=== PATIENT | male | born 1960 | race Caucasian/White ===

== ENCOUNTER → 2021-01-13 | Outpatient (CLI) | payer MEDICARE, OTHER ==
[~2021-01-13] MED LIST: AUGMENTIN 875-1 EACH PO; BUSPIRONE HCL15 MG PO; DICLOFENAC GEL TP; LATANOPROST 0.7.5 ML OP; MELOXICAM15 MG PO; MIRTAZAPINE15 MG PO; OMEPRAZOLE40 MG PO; PROVENTIL HFA6.7 GM INH; SULFASALAZINE500 MG PO; TAMSULOSIN HCL0.4 MG PO; TIZANIDINE HCL4 MG PO; TRAMADOL HCL50 MG PO; ZITHROMAX250 MG PO
== END ==
LOC: EXRD 12-19 11:30
DX: M81.0 Age-related osteoporosis without current pathological fracture (principal)
CPT/HCPCS: 77080

== ENCOUNTER → 2021-01-14 | Outpatient (CLI) | payer MEDICARE, OTHER | LOC: CT 09:28 | DX: N52.9 Male erectile dysfunction, unspecified (principal); R31.9 Hematuria, unspecified; N28.1 Cyst of kidney, acquired | CPT/HCPCS: 36415; 82565; Q9963; Q9967 ==

== ENCOUNTER → 2021-03-27 | Day surgery (SDC) | payer MEDICARE, OTHER | END | disposition home or self-care (01) | LOC: OR 11:01 | DX: N40.1 Benign prostatic hyperplasia with lower urinary tract symptoms (principal); R31.0 Gross hematuria; R39.11 Hesitancy of micturition; R35.1 Nocturia; R39.12 Poor urinary stream; N32.89 Other specified disorders of bladder; F41.9 Anxiety disorder, unspecified; F32.9 Major depressive disorder, single episode, unspecified; K21.9 Gastro-esophageal reflux disease without esophagitis; E78.00 Pure hypercholesterolemia, unspecified; I10 Essential (primary) hypertension; G47.30 Sleep apnea, unspecified; M81.0 Age-related osteoporosis without current pathological fracture; M06.9 Rheumatoid arthritis, unspecified; Z98.84 Bariatric surgery status; Z88.6 Allergy status to analgesic agent; Z79.891 Long term (current) use of opiate analgesic; Z79.899 Other long term (current) drug therapy | CPT/HCPCS: 81001; J7040 ==

== ENCOUNTER → 2021-04-28 | Outpatient (CLI) | payer MEDICARE, OTHER | LOC: EXRD 15:23 | DX: M06.041 Rheumatoid arthritis without rheumatoid factor, right hand (principal); M06.042 Rheumatoid arthritis without rheumatoid factor, left hand; M17.12 Unilateral primary osteoarthritis, left knee; M25.562 Pain in left knee | CPT/HCPCS: 73130; 73560 ==

== ENCOUNTER → 2022-07-21 | Outpatient (CLI) | payer MEDICARE, OTHER | LOC: ECHO 08:30 | DX: R07.9 Chest pain, unspecified (principal); E11.9 Type 2 diabetes mellitus without complications; I08.1 Rheumatic disorders of both mitral and tricuspid valves | CPT/HCPCS: ECHO; 78452; 93017; 93306; A9502 ==

== ENCOUNTER → 2022-08-12 | Outpatient (CLI) | payer MEDICARE, OTHER ==
[~2022-08-12] VITALS: Ht 180.3 cm; Wt 119.7 kg
[~2022-08-12] MED LIST changes: +ASPIRIN81 MG PO; +FINASTERIDE5 MG PO; +ISOSORBIDE MONO30 MG PO; +ISOSORBIDE MONO60 MG PO; +LATANOPROST2.5 ML EYERT; +LIPITOR TAB 2020 MG PO; +LIPITOR40 MG PO; +METFORMIN HCL500 M2 PO; +METOPROLOL TART25 MG PO; +MULTIVITAMIN1 EACH PO; +VITAMIN D3125 MCG PO
== END ==
LOC: CATH 07:10
DX: I25.118 Atherosclerotic heart disease of native coronary artery with other forms of angina pectoris (principal); E11.9 Type 2 diabetes mellitus without complications; K21.9 Gastro-esophageal reflux disease without esophagitis; M81.0 Age-related osteoporosis without current pathological fracture; Z88.6 Allergy status to analgesic agent; I10 Essential (primary) hypertension; Z79.82 Long term (current) use of aspirin; Z79.84 Long term (current) use of oral hypoglycemic drugs; Z79.899 Other long term (current) drug therapy
CPT/HCPCS: 93571; 99152; 99153; C1769; C1887; C1894; J0153; J1644; J2250; J3010; J7040; Q9967